=== PATIENT | male | born 1975 | race Caucasian/White ===

== ENCOUNTER 2021-08-08 11:47 | Emergency (ER) | payer OTHER ==
[2021-08-08 11:54] VITALS: BP 135/73; PULSE 70; TEMP 97.6; BMI 27.2
[2021-08-08] MEDS ORDERED: SODIUM CHLORIDE 1,000 ML IV STA (12:39)
== END 2021-08-08 14:40 | disposition home or self-care (01) ==
LOC: JER 11:47
DX: N20.0 Calculus of kidney (principal)
CPT/HCPCS: 74018-TC-FY; 99283-25